=== PATIENT | female | born 1960 | race Native Hawaiian/Other Pacific Islander ===

== ENCOUNTER 2023-10-02 11:21 | Day surgery (SDC) | payer OTHER, SELFPAY ==
[2023-10-02] VITALS (7 sets, daily range): BP systolic 86–125; BP diastolic 45–69; PULSE 81–96; RESP 12–24; TEMP 36.3–37.1; O2SAT 95–100; BMI 21.9
--- NOTE | 2023-10-02 | PATH_ITS ---
[facility] Accession Number: [id number] No. of containers..02 Tissue . 01 Material submitted: . PART A: ileo-cecal valve - IC VALVE PART B: colon - RECTOSIGMOID POLYPS . 01 Diagnosis: A. Ileocecal Valve, Biopsy: Focal active colitis; please see comment. Negative for granulomas, dysplasia, or malignancy. Additional step sections examined. . B. Rectosigmoid Colon Polyps: Hyperplastic polyp x2. [facility] 10/06/2023 1142 Local . 01 Comment: A. The histologic findings in the ileocecal valve biopsy are most suggestive of an acute self-limited colitis (infectious versus drug/toxin induced). Bowel preparation artifact is also a consideration. . 01 Electronically signed: . Gino Vasquez MD, PhD, Pathologist NPI- [id number] . 01 Gross description: . Part A: IC VALVE: Received in formalin is 1 fragment(s) of michel, soft tissue measuring 0.2 x 0.2 x 0.1 cm submitted entirely in 1 cassette(s) Part B: RECTOSIGMOID POLYPS: Received in formalin are 2 fragment(s) of michel, soft tissue measuring 0.1 x 0.1 x 0.1 cm to 0.2 x 0.2 x 0.2 cm submitted entirely in 1 cassette(s) /GAMALIEL 10/04/2023 1929 Local . 01 Pathologist provided ICD-10: Z12.11, K62.1, K52.9 . 01 CPT . 163452, 136007 Specimen Comment: A courtesy copy of this report has been sent to [phone] Performed at: 01 [facility] [address] [place] [address] [address] [facility], [place], [place] [id number] MD Kolton Francisco MD Phone: [phone]
--- NOTE | 2023-10-02 12:03 | P.HP_ITS ---
History of Present Illness History of Present Illness Date Patient Seen: 10/02/23 Time Patient Seen: 12:03 Chief complaint: Colonoscopy Narrative: 63-year-old female who reports for colon cancer screening. She indicates that she is had colonoscopy in fairly recent memory at [facility]. I have not seen these results. However, she also states that she recently was told she had a positive Cologuard. She is asymptomatic. Meds Home Medications and Allergies Home Medications Medication Instructions Recorded Confirmed Type atorvastatin 10 mg tablet 10 mg PO DAILY 10/02/23 10/02/23 History Allergies Allergy/AdvReac Type Severity Reaction Status Date / Time No Known Drug Allergies Allergy Verified 10/02/23 11:45 Review of Systems Review of Systems ROS: Yes All systems reviewed with the patient and are negative except as otherwise documented Exam Const General: cooperative HENMT Head: normal to inspection Eyes General: appearance normal, both eyes and all related structures Neck Neck: normal visual inspection Chest Chest: normal inspection of the chest Resp Effort & Inspection: normal respiratory effort Cardio Rate: regular rate GI Inspection: normal to inspection Skin General: no rashes or lesions noted Neuro General: patient alert and patient awake Extrem General: normal to inspection and no pedal edema Psych Appearance: grossly normal Assessment & Plan Assessment & Plan narrative: 63-year-old female with a positive Cologuard by verbal report. Colonoscopy is therefore pursued today.
--- NOTE | 2023-10-02 12:05 | PM.PREOP ---
Pre-operative Note Interval Note History & Physical reviewed/Exam performed by Physician: Yes Changes to H&P: No ASA Class (for procedural sedation): I
[2023-10-02] MEDS: LACTATED RINGERS 1,000 ML 84 ML IV (12:10)
--- NOTE | 2023-10-02 13:12 | PM.OP.COLON ---
Operative Date/Time/Diagnoses Date of procedure: 10/02/23 Time of procedure: 13:12 Pre-op diagnosis: Positive Cologuard. Post-op diagnosis: same Procedure & Clinicians Study performed: Colonoscopy with biopsies and cold forceps polypectomy Same procedure as scheduled: Yes Indications: Positive Cologuard Surgeon: Edgardo Salinas Procedure Notes SCOAP/Timeout: Done Procedure in detail: After the risks and benefits were explained, written and verbal informed consent was obtained. The patient was brought into the procedure room and placed into the left lateral decubitus position. Please see anesthesia notes for sedation details. Digital rectal examination was accomplished. The scope was introduced into the patient and advanced under direct visualization to the cecum as identified by the appendiceal orifice and ileocecal valve. The scope was slowly withdrawn to carefully examine the mucosa for any defects or lesions. Comprehensive imaging was accomplished throughout the rectum including the dentate line. The colon was decompressed, the scope was then removed from the patient who tolerated the procedure well. Pediatric colonoscope Bowel prep adequate Scope withdrawal time: 15 minutes Sedation minutes: 24 Complications: none Impression: There were some scattered probably hyperplastic polyps all throughout the rectum and rectosigmoid region. A couple of these were sampled for histopathologic analysis. I did not see any features that suggested underlying adenoma. Grade 1-2 internal hemorrhoids were noted. At the level of the ileocecal valve there was a subtle erosion and this was targeted for histology. Otherwise no significant pathology was appreciated throughout the remainder of the colon. Terminal ileum was interrogated and appeared entirely normal. Endoscopic diagnosis 1. Diminutive rectosigmoid polyps-probably hyperplastic 2. Grade 1-2 hemorrhoids 3. Ileocecal valve erosion-biopsied Post-procedure Plan for aftercare: 1. Await histopathology. 2. Surveillance colonoscopy will be contingent on pathology findings. Disposition: PACU
[2023-10-02] MEDS: ALBUTEROL/IPRATROPIUM 3 ML AMPUL INH (13:22)
--- NOTE | 2023-10-02 13:39 | SUR.PHASEI ---
Pt with constant coughing. Lungs clear. Neb tx given per orders. Coughing resolved.
== END 2023-10-02 13:58 | disposition home or self-care (01) ==
PROVIDERS: PCP Family Medicine; Referring Provider Internal Medicine Gastroenterology; Visit Provider Internal Medicine Gastroenterology
PROC: 0DJD8ZZ Inspection of Lower Intestinal Tract, Via Natural or Artificial Opening Endoscopic (ICD-10-PCS; CPT 45378; principal; 2023-10-02 13:00)
DX: Z12.11 Encounter for screening for malignant neoplasm of colon (principal); R19.5 Other fecal abnormalities; K64.1 Second degree hemorrhoids; K63.5 Polyp of colon; K52.9 Noninfective gastroenteritis and colitis, unspecified
CPT/HCPCS: 45380; J2704